=== PATIENT | female | born 1980 | race Caucasian/White ===

== ENCOUNTER 2017-05-21 19:59 | Emergency (ER) | END 2017-05-21 22:27 | disposition home or self-care (01) ==

== ENCOUNTER 2018-08-12 18:42 | Emergency (ER) | payer MEDICAID, OTHER ==
[~2018-08-12] VITALS: Ht 160 cm; Wt 80.1 kg
[2018-08-12 18:48] VITALS: Ht 160 cm; Wt 80.1 kg
[2018-08-12] MEDS ORDERED: SOD CHLORIDE 0.9% 1,000 ML IV STA (20:00)
[2018-08-12] MEDS ORDERED: ACETAMINOPHEN 500 MG TAB PO STA (20:02)
[2018-08-12] MEDS ORDERED: PROMETHAZINE/CODEINE 5ML CUP PO ONE (20:30)
[2018-08-12] MEDS ORDERED: CETI10TA19 PO (22:38)
[2018-08-12] MEDS ORDERED: D-ME473S2 PO (22:38)
[2018-08-12] MEDS ORDERED: BENZ-6 PO (22:38)
[2018-08-12] MEDS ORDERED: ACET500C5 PO (22:39)
[2018-08-12] MEDS ORDERED: IBUP800T48 PO (22:39)
[2018-08-12] MEDS ORDERED: METHYLPREDNISOLONE ACET 80 MG/ML 1 ML IM ONE (23:00)
[2018-08-12] MEDS ORDERED: DEXAMETHASONE 10 MG/ML 1 ML INJ IM ONE (23:00)
[2018-08-12 23:04] VITALS: BP 134/85; PULSE 68; RESP 18
--- NOTE | 2018-08-13 02:44 | ERD ---
ER Documentation Chief Complaint Chief Complaint cough x 3 days. also c/o chills HPI History of Present Illness: Patient coming in today with complaint of cold symptoms. Nonproductive cough present for 3 days. Associated symptoms include chills, fatigue. 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 Patient denies chest pain, shortness breath, wheezing, nausea, vomiting, ear pain, sinus pain. Past surgical history includes deviated septum repair. At home pharmacological/nonpharmacological treatment for symptoms: denies Social History: Patient denies tobacco, alcohol, elicit drug use Allergies: NKDA Social Concerns: Denies ROS All systems reviewed and are negative except as per history of present illness. Medications Home Meds Active Scripts Ibuprofen* (Motrin*) 800 Mg Tab, 800 MG PO Q6H PRN for PAIN AND OR ELEVATED TEMP, #30 TAB Prov:MAXIMUS AYALA V HANDS PARTER 08/12/18 Acetaminophen* (Tylophen*) 500 Mg Capsule, 2 CAP PO Q8H PRN for PAIN AND OR ELEVATED TEMP, #20 CAP Prov:MAXIMUS AYALA NP 08/12/18 Dextromethorphan Hb-Promethazine Hcl* (Promethazine DM* Syrup) 473 Ml Syrup, 5 ML PO Q6 PRN for COUGH, #60 ML Prov:MAXIMUS AYALA NP 08/12/18 Benzonatate* (Tessalon Perle*) 100 Mg Capsule, 100 MG PO Q8H PRN for COUGH, #15 CAP Prov:MAXIMUS AYALA NP 08/12/18 Cetirizine Hcl* (Cetirizine Hcl*) 10 Mg Tablet, 10 MG PO DAILY for cough/allergies/runny nose, #30 TAB Prov:MAXIMUS AYALA V HANDS PARTER 08/12/18 Allergies Allergies: Coded Allergies: No Known Drug Allergies (Verified Allergy, Mild, 10/26/10) PMhx/Soc History of Surgery: Yes (nasal surgery, lumpectomy) Anesthesia Reaction: No Hx Neurological Disorder: No Hx Respiratory Disorders: No Hx Cardiac Disorders: No Hx Psychiatric Problems: No Hx Miscellaneous Medical Probl: No Hx Alcohol Use: No Hx Substance Use: No Hx Tobacco Use: No Smoking Status: Never smoker FmHx Family History: No diabetes Physical Exam Vitals Vital Signs Date Temp Pulse Resp B/P (MAP) Pulse Ox O2 O2 Flow FiO2 Time Delivery Rate 08/12/18 97.5 68 18 134/85 97 Room Air 23:04 (101) 08/12/18 98.7 20:28 08/12/18 99.6 77 18 149/91 99 18:48 (110) Physical Exam Const: No acute distress Head: Atraumatic Eyes: Normal Conjunctiva ENT: Normal External Ears, Nose and Mouth. Pharyngeal erythema, nasal mucosa with erythema. Neck: Full range of motion. No meningismus. Resp: Clear to auscultation bilaterally Cardio: Regular rate and rhythm, no murmurs Abd: Soft, non tender, non distended. Normal bowel sounds Skin: No petechiae or rashes Back: No midline or flank tenderness Ext: No cyanosis, or edema Neur: Awake and alert Psych: Normal Mood and Affect Result Diagram: 08/12/18203308/12/182033 Results 24 hrs Laboratory Tests Test 08/12/18 20:16 08/12/18 20:18 08/12/18 20:24 08/12/18 20:34 Bedside Urine pH 7.0 (LAB) Bedside Urine Negative Protein (LAB) Bedside Urine Negative Glucose (UA) Bedside Urine Negative Ketones (LAB) Bedside Urine Negative Blood Bedside Urine Negative Nitrite (LAB) Bedside Urine Negative Leukocyte Esteras e (L POC Beta HCG, NEGATIVE Qualitative Urine Color YELLOW Urine Clarity CLEAR Urine pH 6.0 Urine Specific 1.013 Stone Urine Ketones NEGATIVE mg/dL Urine Nitrite NEGATIVE mg/dL Urine Bilirubin NEGATIVE mg/dL Urine NEGATIVE mg/dL Urobilinogen Urine Leukocyte NEGATIVE David/ul Esterase Urine Hemoglobin NEGATIVE mg/dL Urine Glucose NEGATIVE mg/dL Urine Total NEGATIVE mg/dl Protein White Blood Count 9.9 10^3/ul Red Blood Count 4.91 10^6/ul Hemoglobin 11.9 g/dl Hematocrit 38.8 % Mean Corpuscular 79.0 fl Volume Mean Corpuscular 24.2 pg Hemoglobin Mean Corpuscular 30.7 g/dl Hemoglobin Concen t Red Cell 14.3 % Distribution Width Platelet Count 467 10^3/UL Mean Platelet 8.6 fl Volume Immature 0.500 % Granulocytes % Neutrophils % 64.1 % Lymphocytes % 27.2 % Monocytes % 6.1 % Eosinophils % 1.5 % Basophils % 0.6 % Nucleated Red 0.0 /100WBC Blood Cells % Immature 0.050 10^3/ul Granulocytes # Neutrophils # 6.3 10^3/ul Lymphocytes # 2.7 10^3/ul Monocytes # 0.6 10^3/ul Eosinophils # 0.2 10^3/ul Basophils # 0.1 10^3/ul Nucleated Red 0.0 10^3/ul Blood Cells # Sodium Level 142 mmol/L Potassium Level 3.6 mmol/L Chloride Level 102 mmol/L Carbon Dioxide 26 mmol/L Level Anion Gap 14 Blood Urea 11 mg/dl Nitrogen Creatinine 0.69 mg/dl Est Glomerular > 60 mL/min Filtrat Rate mL/min Glucose Level 78 mg/dl Calcium Level 9.3 mg/dl Total Bilirubin 0.3 mg/dl Direct Bilirubin 0.00 mg/dl Indirect 0.3 mg/dl Bilirubin Aspartate Amino 17 IU/L Transf (AST/SGOT) Alanine 17 IU/L Aminotransferase (ALT/SGPT) Alkaline 57 IU/L Phosphatase Total Protein 7.9 g/dl Albumin 4.3 g/dl Globulin 3.60 g/dl Albumin/Globulin 1.19 Ratio Current Medications Medications Dose Sig/Froilan Start Time Status Last (Trade) Ordered Route PRN Stop Time Admin Dose Reason Admin Sodium 1,000 ml @ Q1H STAT 08/12/18 DC 08/12/18 Chloride 1,000 mls/hr IV 20:00 20:29 08/12/18 20:59 Promethazine 10 ml ONCE ONCE 08/12/18 DC 08/12/18 HCl/ PO 20:30 20:28 Codeine 08/12/18 20:31 (Phenergan/ Codeine) 1,000 mg ONCE STAT 08/12/18 DC 08/12/18 Acetaminophen PO 20:02 20:28 (Tylenol 08/12/18 20:04 Tab) 8 mg ONCE ONCE 08/12/18 DC 08/12/18 Dexamethasone IM 23:00 22:58 (Decadron) 08/12/18 23:01 80 mg ONCE ONCE 08/12/18 DC 08/12/18 Methylprednis IM 23:00 22:58 olone 08/12/18 23:01 Acetate (Depo-Medrol 80 Mg/ml 1 ml) Procedures/MDM ED course includes a thorough examination and history. ED course includes labs; CBC, CMP, urinalysis, test influenza. ED course includes medication; acetaminophen and IV fluids. Low suspicion for threatening medical emergency or coronary pulmonary emergency requires immediate hospitalization/immediate intervention. Otherwise healthy patient presenting with constellation of symptoms likely representing uncomplicated viral syndrome as characterized by history, physical exam findings, lab findings. No leukocytosis on CBC, no acidosis or abnormality on CMP. Urinalysis negative for infection. Influenza negative. negative. Will give patient dose of steroids IM prior to discharge for pharyngeal erythema and nasal erythema. Patient reports feeling little better after acetaminophen and IV NS. Patient tolerating p.o. fluids in ER without difficulty. No respiratory distress, otherwise relatively well appearing and nontoxic. Patient educated on diagnoses, prescriptions, follow-up care, return precaution s. Strict return precautions given for worsening condition; questions answered discharge. Disposition for discharge with followup in 2 days with PCP/clinic. Departure Diagnosis: Primary Impression: Viral syndrome Condition: Stable Patient Instructions: Viral Syndrome (Adult) Referrals: [facility] YOU HAVE RECEIVED A MEDICAL SCREENING EXAM AND THE RESULTS INDICATE THAT YOU DO NOT HAVE A CONDITION THAT REQUIRES URGENT TREATMENT IN THE EMERGENCY DEPARTMENT. FURTHER EVALUATION AND TREATMENT OF YOUR CONDITION CAN WAIT UNTIL YOU ARE SEEN IN YOUR DOCTORS OFFICE WITHIN THE NEXT 1-2 DAYS. IT IS YOUR RESPONSIBILITY TO MAKE AN APPOINTMENT FOR FOLOW-UP CARE. IF YOU HAVE A PRIMARY DOCTOR --you should call your primary doctor and schedule an appointment IF YOU DO NOT HAVE A PRIMARY DOCTOR YOU CAN CALL OUR PHYSICIAN REFERRAL HOTLINE AT IF YOU CAN NOT AFFORD TO SEE A PHYSICIAN YOU CAN CHOSE FROM THE FOLLOWING [facility] [address]. [facility] [address] [facility] [address] [facility] [facility] [address] [facility] [facility] [address] [facility]. [facility]. [address] [facility]. [facility] YOU HAVE RECEIVED A MEDICAL SCREENING EXAM AND THE RESULTS INDICATE THAT YOU DO NOT HAVE A CONDITION THAT REQUIRES URGENT TREATMENT IN THE EMERGENCY DEPARTMENT. FURTHER EVALUATION AND TREATMENT OF YOUR CONDITION CAN WAIT UNTIL YOU ARE SEEN IN YOUR DOCTORS OFFICE WITHIN THE NEXT 1-2 DAYS. IT IS YOUR RESPONSIBILITY TO MAKE AN APPOINTMENT FOR FOLOW-UP CARE. IF YOU HAVE A PRIMARY DOCTOR --you should call your primary doctor and schedule and appointment IF YOU DO NOT HAVE A PRIMARY DOCTOR YOU CAN CALL OUR PHYSICIAN REFERRAL HOTLINE AT . IF YOU CAN NOT AFFORD TO SEE A PHYSICIAN YOU CAN CHOSE FROM THE FOLLOWING [facility] INSTITUTIONS: [facility] [address] [place] [address] [facility] [address] [place] [address] [facility] + [facility] [address] [place] [address] Additional Instructions: Call your primary care doctor TOMORROW for an appointment during the next 2-3 days.See the doctor sooner or return here if your condition worsens before your appointment time. Return to ER for any signs of respiratory distress, shortness of breath, chest pain, fever uncontrolled medication, vomiting, altered mental status, inability to self hydrate. MAXIMUS AYALA NP Aug 13, 2018 02:44
== END 2018-08-12 23:05 | disposition home or self-care (01) ==
LOC: FTE 18:42
DX: B34.9 Viral infection, unspecified (principal)
CPT/HCPCS: 36415; 80053; 81003; 81025; 85025; 87400; 96372; J1040; J1100; J7030; Z7502; Z7610